=== PATIENT | female | born 1935 | race Caucasian/White ===

== ENCOUNTER → 2017-08-18 | Outpatient (CLI) | payer MEDICARE, MEDICAID ==
[~2017-08-18] MED LIST: ALPR0.25 PO; ASCO10004 PO; CELE200C PO; CHOL500045 PO; CYCL1DRO EACHEYE; GABA-826 PO; HYDR-3237 PO; MULT-516 PO; OXYC1TAB7 PO; TRAZ100T15 PO; calcium PO
== END | disposition home or self-care (01) ==
LOC: CFH 10:38
PROVIDERS: ATTEND Nurse Practitioner Gerontology
DX: Z12.2 Encounter for screening for malignant neoplasm of respiratory organs (principal); R91.1 Solitary pulmonary nodule; J84.10 Pulmonary fibrosis, unspecified; F17.210 Nicotine dependence, cigarettes, uncomplicated
CPT/HCPCS: G0297

== ENCOUNTER → 2018-04-07 | Outpatient (CLI) | payer MEDICARE, MEDICAID ==
[~2018-04-07] MED LIST changes: +TRAZ-137 PO; -TRAZ100T15 PO
== END | disposition home or self-care (01) ==
LOC: CFH 14:31
PROVIDERS: ATTEND Neurological Surgery
DX: S33.39XA Dislocation of other parts of lumbar spine and pelvis, initial encounter (principal); M51.36 Other intervertebral disc degeneration, lumbar region; M48.02 Spinal stenosis, cervical region; X58.XXXA Exposure to other specified factors, initial encounter; Y93.89 Activity, other specified; Y92.89 Other specified places as the place of occurrence of the external cause; Y99.8 Other external cause status
CPT/HCPCS: 72050; 72110; 72141

== ENCOUNTER → 2018-06-01 | Outpatient (CLI) | payer MEDICARE, MEDICAID | END | disposition home or self-care (01) | LOC: CFH 13:52 | PROVIDERS: ATTEND Neurological Surgery | DX: M47.26 Other spondylosis with radiculopathy, lumbar region (principal); M50.30 Other cervical disc degeneration, unspecified cervical region; M48.02 Spinal stenosis, cervical region; M48.061 Spinal stenosis, lumbar region without neurogenic claudication | CPT/HCPCS: 72110 ==

== ENCOUNTER → 2018-09-27 | Outpatient (CLI) | payer MEDICARE, MEDICAID | END | disposition home or self-care (01) | LOC: CFH 14:13 | PROVIDERS: ATTEND Neurological Surgery | DX: M43.5X6 Other recurrent vertebral dislocation, lumbar region (principal); M50.30 Other cervical disc degeneration, unspecified cervical region; M54.16 Radiculopathy, lumbar region; M48.02 Spinal stenosis, cervical region; M48.061 Spinal stenosis, lumbar region without neurogenic claudication; M43.26 Fusion of spine, lumbar region | CPT/HCPCS: 72110 ==

== ENCOUNTER 2018-11-19 15:11 | Emergency (ER) | payer MEDICARE, MEDICAID ==
[~2018-11-19] VITALS: Ht 160 cm; Wt 69.3 kg
[2018-11-19 16:19] LABS: BASOPHILS # (AUTO) 0.08 x10^3/uL (0-0.1); BASOPHILS % (AUTO) 1 % (0-1); EOSINOPHILS # (AUTO) 0.27 x10^3/uL (0-0.4); EOSINOPHILS % (AUTO) 3 % (1-7); LYMPHOCYTES # (AUTO) 3.32 x10^3/uL (1-3.4); LYMPHOCYTES % (AUTO) 37 % (22-44); MD NO; MEAN CORPUSCULAR HEMOGLOBIN 30.3 pg (27.0-34.8); MEAN CORPUSCULAR HGB CONC 32.6 g/dL (32.4-35.8); MEAN PLATELET VOLUME 7.2 fL (7.4-10.4); MONOCYTES # (AUTO) 0.57 x10^3/uL (0.2-0.8); MONOCYTES % (AUTO) 6 % (2-9); NEUTROPHILS # (AUTO) 4.66 x10^3/uL (1.8-6.8); NEUTROPHILS % (AUTO) 52 % (42-75); PLATELET COUNT 257 x10^3/uL (130-400); RED BLOOD COUNT 4.05 x10^6/uL (3.82-5.3)
[2018-11-19 16:20] LABS: HCT (SEDRATE) 37.1 % (34.6-47.8)
[2018-11-19 16:30] LABS: ALBUMIN 3.2 g/dL (3.4-5.0); ANION GAP 6 mmol/L (5-15); CALCIUM 8.9 mg/dL (8.5-10.1); CHLORIDE 105 mmol/L (98-107); CREATININE 0.55 mg/dL (0.55-1.02)
--- NOTE | 2018-11-19 16:51 | NUR ---
BREAK RN NOTE: REPORT RECEIVED FROM PRIMARY RN ANDRÉS. PT A&O, RESPS EVEN AND UNLABORED. PT REPORTS 8/10 PAIN TO RT LEG. PT DENIES NEED FOR PAIN MEDICATION AT THIS TIME. ALL RESULTS BACK, CHART UP FOR RECHECK. AWAITING MD AND DISPO.
[2018-11-19 17:12] VITALS: BP 130/58
--- NOTE | 2018-11-19 17:15 | NUR ---
REPORT GIVEN TO PRIMARY RN ANDRÉS.
--- NOTE | 2018-11-19 17:42 | NUR ---
D/C INSTRUCTIONS, MEDS, & F/U APPT RV'WD WITH PT AND DAUGHTER. RX GIVEN X1. PT AMBULATED OUT OF ED WITH DAUGHTER WITHOUT DIFFICULTY.
== END 2018-11-19 17:45 | disposition home or self-care (01) ==
LOC: ED 16:33
DX: L03.115 Cellulitis of right lower limb (principal); F17.200 Nicotine dependence, unspecified, uncomplicated
CPT/HCPCS: 36415; 80048; 82040; 85025; 85651; 99284

== ENCOUNTER 2019-07-04 14:54 | Observation (INO) | payer MEDICARE, MEDICAID ==
[~2019-07-04] VITALS: Ht 162.6 cm; Wt 51.9 kg
--- NOTE | 2019-07-04 15:04 | NUR ---
EKG DONE. DR KHALIL BS FOR EXAM. PT CURRENTLY A&OX4, RESP EVEN & UNLABORED, SPEECH CLEAR, SKIN WNL. DAUGHTER IN ROOM; STATES SHE LEFT THE HOUSE ABOUT 0930. PT REPORTS SHE DIDN'T FEEL WELL AT 1030. DAUGHTER RETURNED HOME APPROX 1400; REPORTS PT'S SPEECH WAS OFF (APPROXIMATELY 1409). EMS ARRIVED AT 1419; SPEECH NORMAL AT 1425. [facility] STROKE SCALE DONE PER DR KHALIL; NO DEFICITS NOTED. PT C/O LT SHOULDER PAIN; LIMITED ROM; STATES SHE GOT A FLU SHOT IN APRIL.
[2019-07-04] MEDS ORDERED: ONDA4TAB12 PO (15:22)
[2019-07-04] MEDS ORDERED: HYDR-826 PO (15:22)
[2019-07-04] MEDS ORDERED: TIZA4TAB2 PO (15:22)
[2019-07-04] MEDS ORDERED: SODIUM CHLORIDE FLUSH 10ML SYR IVF ONE (15:30)
[2019-07-04 15:32] LABS: BASOPHILS # (AUTO) 0.06 x10^3/uL (0-0.1); BASOPHILS % (AUTO) 1 % (0-1); EOSINOPHILS # (AUTO) 0.23 x10^3/uL (0-0.4); EOSINOPHILS % (AUTO) 3 % (1-7); LYMPHOCYTES % (AUTO) 39 % (22-44); MD NO; MEAN CORPUSCULAR HEMOGLOBIN 31.9 pg (27.0-34.8); MEAN CORPUSCULAR HGB CONC 33.5 g/dL (32.4-35.8); MEAN CORPUSCULAR VOLUME 95.2 fL (80-100); MEAN PLATELET VOLUME 8.2 fL (7.4-10.4); MONOCYTES # (AUTO) 0.52 x10^3/uL (0.2-0.8); MONOCYTES % (AUTO) 6 % (2-9); NEUTROPHILS # (AUTO) 4.91 x10^3/uL (1.8-6.8); NEUTROPHILS % (AUTO) 53 % (42-75); PLATELET COUNT 272 x10^3/uL (130-400); RED BLOOD COUNT 4.43 x10^6/uL (3.82-5.3); RED CELL DISTRIBUTION WIDTH 13.3 % (9.6-15.2)
--- NOTE | 2019-07-04 15:33 | NUR ---
PT WAS AMBULATORY TO & FROM [facility] W/OUT INCIDENT; GAIT STEADY; ACCOMPANIED BY DAUGHTER. VOIDED SPECIMEN PROVIDED. PT NOW TO XR PER PAVAN.
[2019-07-04 15:39] LABS: ALANINE AMINOTRANSFERASE 23 U/L (12-78); ALBUMIN 3.7 g/dL (3.4-5.0); ANION GAP 5 mmol/L (5-15); CALCIUM 9.4 mg/dL (8.5-10.1); CHLORIDE 107 mmol/L (98-107); CREATININE 0.74 mg/dL (0.55-1.02)
[2019-07-04 15:44] LABS: ALKALINE PHOSPHATASE 100 U/L (45-117); BILIRUBIN,TOTAL 0.6 mg/dL (0.2-1.0); TOTAL PROTEIN 7.2 g/dL (6.4-8.2); TROPONIN I < 0.015 ng/mL (0.000-0.045)
[2019-07-04 15:56] LABS: MICROSCOPIC AUTO
[2019-07-04 15:58] LABS: CULTURE INDICATED? YES
[2019-07-04] MEDS ORDERED: POTASSIUM CHLORIDE 20 MEQ in SODIUM CHLORIDE 0.9% 1,000 ML IV SCH (16:16)
[2019-07-04] MEDS ORDERED: ONDANSETRON ODT 4 MG PO PRN (16:30)
[2019-07-04] MEDS ORDERED: ONDANSETRON 2MG/ML, 2ML IVPush PRN (16:30)
[2019-07-04] MEDS ORDERED: OXYcodone 5 MG/5 ML ORAL.SOL UDC PO PRN (16:30)
[2019-07-04] MEDS ORDERED: morphine SULFATE 10 MG/ML, 1ML IVPush PRN (16:30)
[2019-07-04] MEDS ORDERED: ACETAMINOPHEN 650 MG/20.3 ML UDC PO PRN (16:30)
--- NOTE | 2019-07-04 16:40 | NUR ---
TO MRI PER PAVAN
--- NOTE | 2019-07-04 17:19 | NUR ---
PT REPORT TO BREAK RN: TARIQ
--- NOTE | 2019-07-04 17:32 | NUR ---
SHEYLA RN: PATIENT BACK FROM MRI.
--- NOTE | 2019-07-04 17:44 | NUR ---
SHEYLA RN: PT REQUESTING FOOD TRAY. OKAY TO ORDER PER ERMD. ORDER PLACED.
--- NOTE | 2019-07-04 17:58 | NUR ---
PT REPORT FROM NONA POTTER. PT CARE TO BE RESUMED.
--- NOTE | 2019-07-04 18:24 | NUR ---
LAB RESULT WNL. HOSPITALIST ORDER FOR POTASSIUM 20MEQ IN 1000 NS. WILL HOLD FOR FLOOR TO CONFIRM ORDER WITH DR MATHEW.
--- NOTE | 2019-07-04 18:31 | NUR ---
PT REPORT TO NONA HERRING FOR ROOM 404-2
[2019-07-04] MEDS ORDERED: OXYC-432 PO (19:19)
[2019-07-04] MEDS ORDERED: DULO60CA7 PO (19:20)
[2019-07-04] MEDS ORDERED: MUPI22OI2 TP (19:24)
[2019-07-04] MEDS ORDERED: TRAZ150T62 PO (19:27)
[2019-07-04] MEDS: CYCLOSPORINE EACHEYE SCH (20:07)
[2019-07-04] MEDS: TRAZODONE 150MG TABLET PO SCH (20:33)
[2019-07-04] MEDS: OXYcodone/APAP 10/325MG TABLET PO PRN (20:33)
[2019-07-04] MEDS: NICOTINE 14MG/24 HR PATCH.TD24 TD SCH (20:34)
[2019-07-04] MEDS ORDERED: ATORVASTATIN 40 MG TABLET PO SCH (21:00)
[2019-07-04] MEDS ORDERED: TRAZODONE 50MG TABLET PO SCH (21:00)
[2019-07-04 21:06] VITALS: BP 151/79
[2019-07-05 01:09] VITALS: BP 155/76
[2019-07-05 04:02] LABS: AMPHETAMINE SCREEN, URINE Negative (Negative); BARBITURATE SCREEN, URINE Positive (Negative); BENZODIAZEPINE SCREEN, URINE Positive (Negative); CANNABINOID SCREEN, URINE Negative (Negative); COCAINE SCREEN, URINE Negative (Negative); METHADONE SCREEN, URINE Negative (Negative); OPIATE SCREEN, URINE Negative (Negative)
[2019-07-05 05:38] LABS: CHOL/HDL RATIO 3.3; LDL/HDL RATIO 1.7 (0.5-3.0)
[2019-07-05 07:46] VITALS: BP 169/91
[2019-07-05] MEDS: CYCLOSPORINE EACHEYE SCH ×2 (07:55→20:34)
[2019-07-05] MEDS: ASPIRIN 81 MG TABLET CHEW PO/NG SCH (07:55)
[2019-07-05] MEDS ORDERED: POLYETHYLENE GLYCOL 17 GM PACKET ONE (11:53)
[2019-07-05] MEDS: SENNA/DOCUSATE TABLET PO SCH (11:58)
[2019-07-05] MEDS: OXYcodone/APAP 10/325MG TABLET PO PRN (11:58)
[2019-07-05] MEDS: NS + 20MEQ KCL 1,000 ML IV SCH ×2 (11:59→23:36)
[2019-07-05] MEDS ORDERED: POLYETHYLENE GLYCOL 17 GM PACKET PO PRN (12:00)
[2019-07-05] MEDS ORDERED: POLYETHYLENE GLYCOL 17 GM PACKET NG PRN (12:00)
[2019-07-05] MEDS ORDERED: BISACODYL 10 MG SUPP PR PRN (12:00)
[2019-07-05 13:30] VITALS: BP 166/84
[2019-07-05 20:11] VITALS: BP 164/86
[2019-07-05] MEDS: ATORVASTATIN 40 MG TABLET PO SCH (20:33)
[2019-07-05] MEDS: TRAZODONE 150MG TABLET PO SCH (20:33)
[2019-07-05] MEDS: NICOTINE 14MG/24 HR PATCH.TD24 TD SCH (20:34)
[2019-07-06 01:26] VITALS: BP 115/66
[2019-07-06 02:15] VITALS: BP 127/67
[2019-07-06] MEDS: SENNA/DOCUSATE TABLET PO SCH (08:00)
[2019-07-06] MEDS: ASPIRIN 81 MG TABLET CHEW PO/NG SCH (08:01)
[2019-07-06] MEDS: CYCLOSPORINE EACHEYE SCH ×2 (08:08→20:38)
[2019-07-06 08:45] VITALS: BP 179/48
[2019-07-06] MEDS: OXYcodone/APAP 10/325MG TABLET PO PRN ×2 (11:20→19:16)
[2019-07-06 12:24] VITALS: BP 178/66
[2019-07-06 13:12] VITALS: BP 157/83
[2019-07-06 20:07] VITALS: BP 153/72
[2019-07-06] MEDS: TRAZODONE 150MG TABLET PO SCH (20:37)
[2019-07-06] MEDS: ATORVASTATIN 40 MG TABLET PO SCH (20:38)
[2019-07-06] MEDS: NICOTINE 14MG/24 HR PATCH.TD24 TD SCH (20:40)
[2019-07-07 02:19] VITALS: BP 149/81
[2019-07-07] MEDS: OXYcodone/APAP 10/325MG TABLET PO PRN (04:17)
[2019-07-07 07:21] VITALS: BP 161/88
[2019-07-07] MEDS: CYCLOSPORINE EACHEYE SCH (09:00)
[2019-07-07] MEDS: ASPIRIN 81 MG TABLET CHEW PO/NG SCH (09:35)
[2019-07-07] MEDS: SENNA/DOCUSATE TABLET PO SCH (09:36)
== END 2019-07-07 12:50 | disposition home health service (06) ==
LOC: ED 15:34 → INTOOBSV 16:16 → EDIP 16:16 → 4WST 18:52 → DCLOUNGE 07-07 12:41
PROVIDERS: ADMIT Hospitalist; ATTEND Family Medicine
DX: G45.9 Transient cerebral ischemic attack, unspecified (principal); R47.1 Dysarthria and anarthria; F11.20 Opioid dependence, uncomplicated; F13.20 Sedative, hypnotic or anxiolytic dependence, uncomplicated; R47.01 Aphasia; F17.210 Nicotine dependence, cigarettes, uncomplicated; F41.9 Anxiety disorder, unspecified; G89.29 Other chronic pain; I51.7 Cardiomegaly; G62.9 Polyneuropathy, unspecified; J44.9 Chronic obstructive pulmonary disease, unspecified; Z66 Do not resuscitate; Z79.82 Long term (current) use of aspirin; Z90.710 Acquired absence of both cervix and uterus; Z79.899 Other long term (current) drug therapy
CPT/HCPCS: 36415; 70450; 70551; 71045; 80053; 80061; 80307; 81001; 82962; 84484; 85025; 87086; 92523; 93005; 93306; 93880; 97116; 97162; 97166; 99285; G0378; G0515; J3480; J7030; Q0177

== ENCOUNTER 2019-09-12 13:22 | Outpatient (CLI) | payer MEDICARE, MEDICAID ==
[~2019-09-12 13:22] MED LIST changes: +DULO60CA7 PO; +HYDR-826 PO; +MUPI22OI2 TP; +ONDA-89 PO; +OXYC-432 PO; +TIZA4TAB2 PO; -TRAZ-137 PO; +TRAZ-175 PO; +TRAZ150T62 PO
== END 2019-09-12 23:59 | disposition home or self-care (01) ==
LOC: CFH 13:22
PROVIDERS: ATTEND Neurological Surgery
DX: M43.27 Fusion of spine, lumbosacral region (principal); M48.061 Spinal stenosis, lumbar region without neurogenic claudication
CPT/HCPCS: 72110

== ENCOUNTER 2020-09-28 14:42 | Emergency (ER) | payer MEDICARE, MEDICAID ==
[~2020-09-28] VITALS: Ht 160 cm; Wt 66.4 kg
[~2020-09-28 14:42] MED LIST changes: +ASCO100018 PO; -ASCO10004 PO; -OXYC-432 PO; +OXYC1TAB18 PO
--- NOTE | 2020-09-28 15:20 | NUR ---
Pt here with her daughter who she lives with. Daughter reports pt's BP was high around 170's systolic at PCP appointment on September 04. The last few days BP has been as high as 209 systolic at home. Pt symptoms include headache, weakness, unsteady gait over last few days and today. Pt has PCP appointment tomorrow she plans to go to but pt and daughter concerned about her persisting high BP so wanted to get checked out today. Pt strength, alberene stone setter, sensation equal strong and intact throughout bilaterally. Hooked up to monitor. Call light in reach. Warm blankets provided. Pt hx: hysterectomy, double mastectomy d/t cysts (no cancer), daily smoker
--- NOTE | 2020-09-28 15:43 | NUR ---
Dr. Nino at bedside.
[2020-09-28] MEDS ORDERED: SODIUM CHLORIDE FLUSH 10ML SYR IVF ONE (16:00)
--- NOTE | 2020-09-28 16:39 | NUR ---
IV started, labs drawn, clonidine administered per eMAR. Pt denies needs at this time. Hooked up to monitor, call light in reach.
[2020-09-28 16:50] LABS: BASOPHILS % (AUTO) 1 % (0-1); EOSINOPHILS % (AUTO) 1 % (1-7); LYMPHOCYTES % (AUTO) 33 % (22-44); MD NO; MEAN CORPUSCULAR HEMOGLOBIN 30.9 pg (27.0-34.8); MEAN CORPUSCULAR HGB CONC 34.3 g/dL (32.4-35.8); MEAN PLATELET VOLUME 7.2 fL (7.4-10.4); MONOCYTES % (AUTO) 6 % (2-9); NEUTROPHILS % (AUTO) 60 % (42-75); PLATELET COUNT 311 x10^3/uL (130-400); RED BLOOD COUNT 4.27 x10^6/uL (3.82-5.3); RED CELL DISTRIBUTION WIDTH 13.2 % (9.6-15.2)
[2020-09-28 17:00] LABS: ALBUMIN 3.6 g/dL (3.4-5.0); ANION GAP 4 mmol/L (5-15); CALCIUM 8.6 mg/dL (8.5-10.1); CHLORIDE 103 mmol/L (98-107)
[2020-09-28 17:11] LABS: ALANINE AMINOTRANSFERASE 22 U/L (12-78); ALKALINE PHOSPHATASE 99 U/L (45-117); BILIRUBIN,TOTAL 0.3 mg/dL (0.2-1.0); CREATININE 0.71 mg/dL (0.55-1.02); TOTAL PROTEIN 6.7 g/dL (6.4-8.2)
[2020-09-28] MEDS ORDERED: MORPHINE SULFATE 4 MG/ML, 1ML ONE (17:25)
--- NOTE | 2020-09-28 17:25 | NUR ---
BP now 192/89. Pt resting comfortably on gurney, denies needs at this time.
--- NOTE | 2020-09-28 17:40 | NUR ---
Pt ambulating to bathroom with daughter, equal steady gait
[2020-09-28 17:52] VITALS: BP 162/61
--- NOTE | 2020-09-28 17:55 | NUR ---
IV removed, catheter intact, hemostasis achieved, dressing applied.
--- NOTE | 2020-09-28 18:32 | NUR ---
TASK RN: DC EDUCATION PROVIDED, PT DEMONSTRATES UNDERSTANDING. PT AMBULATED STEADILY TO DC WITH RN AND DAUGHTER. DAUGHTER TO TRANSPORT PT HOME.
== END 2020-09-28 18:35 | disposition home or self-care (01) ==
LOC: ED 17:45
DX: I10 Essential (primary) hypertension (principal); G89.29 Other chronic pain; R07.9 Chest pain, unspecified; R94.31 Abnormal electrocardiogram [ECG] [EKG]
CPT/HCPCS: 36415; 71045; 80053; 84443; 85025; 93005; 99285